=== PATIENT | male | born 1940 | race Caucasian/White ===

== ENCOUNTER 2018-06-19 07:15 | Day surgery (SDC) | payer OTHER, MEDICARE ==
[~2018-06-19] VITALS: Ht 182.9 cm; Wt 86.1 kg
[2018-06-19] VITALS (17 sets, daily range): BP systolic 78–102; BP diastolic 52–67
[2018-06-19] MEDS ORDERED: normal saline 1000ml 1,000 ML IV PRN (07:45)
[2018-06-19] MEDS ORDERED: fentaNYL/PF 50MCG/1 ML 2ML syringe IV ONE (07:45)
[2018-06-19] MEDS ORDERED: MIDAZolam 1mg/ml 10ml vial IV ONE (07:45)
--- NOTE | 2018-06-19 08:05 | NUR ---
informed MD pt arrived with PICC line in place with milrinone running per infusion pump. MD aware verbal order given to use PICC line per MD
--- NOTE | 2018-06-19 08:08 | NUR ---
CALLED PHARMACY, SPOKE WITH ESTIVEN TO CONFIRM MEDICATION COMPATIBILITY OF MEDICATIONS ORDERED AND MEDICATION INFUSION RUNNING IN PT PICC LINE. PHARMACY CONFIRMED COMPATIBILITY IS GOOD.
[2018-06-19 08:36] LABS: EOSINOPHILS # (AUTO) 0.1 X10'3 (0-0.9); EOSINOPHILS % (AUTO) 2.4 % (0-6); HEMATOCRIT 28.9 % (42.0-52.0); HEMOGLOBIN 9.5 g/dl (14.0-17.9); LYMPHOCYTES # (AUTO) 0.5 X10'3 (1.1-4.8); LYMPHOCYTES % (AUTO) 14.5 % (21-51); MEAN CORPUSCULAR HEMOGLOBIN 29.4 PG (27.0-31.0); MEAN CORPUSCULAR HGB CONC 32.7 g/dL (33.0-36.5); MEAN CORPUSCULAR VOLUME 89.8 FL (78-98); MEAN PLATELET VOLUME 8.1 FL (7.4-10.4); MONOCYTES # (AUTO) 0.4 X10'3 (0-0.9); MONOCYTES % (AUTO) 10.9 % (2-12); NEUTROPHILS # (AUTO) 2.6 X10'3 (1.8-7.7); NEUTROPHILS % (AUTO) 71.2 % (42-75); PLATELET COUNT 119 X10'3 (140-440); RED BLOOD COUNT 3.22 X10'6 (4.70-6.10); RED CELL DISTRIBUTION WIDTH 15.5 % (11.5-14.5); WHITE BLOOD COUNT 3.7 X10'3 (4.5-11.0)
[2018-06-19 08:43] LABS: ALBUMIN 2.6 G/DL (3.4-5.0); ANION GAP 6 (8-16); BLOOD UREA NITROGEN 94 MG/DL (7-18); BUN/CREATININE RATIO 36.7 (5.4-32.0); CALCIUM 8.9 MG/DL (8.5-10.1); CHLORIDE 94 MMOL/L (99-107); CREATININE 2.56 MG/DL (0.60-1.10); GLUCOSE 113 MG/DL (70-104); MAGNESIUM 2.1 MG/DL (1.5-2.4); SODIUM 137 MMOL/L (135-145); TOTAL CARBON DIOXIDE 37.3 MMOL/L (24-32); eGFR 24 ML/MIN
[2018-06-19 08:47] LABS: POTASSIUM 2.7 MMOL/L (3.5-5.1)
[2018-06-19] MEDS ORDERED: LEVO50TA8 PO (08:47)
[2018-06-19] MEDS ORDERED: ROPI0.252 PO (08:47)
[2018-06-19] MEDS ORDERED: METO-395 PO (08:47)
[2018-06-19] MEDS ORDERED: BUME2TAB3 PO (08:47)
[2018-06-19] MEDS ORDERED: METO5TAB7 PO (08:47)
[2018-06-19] MEDS ORDERED: [UNRECOGNIZED DRUG - CODE] IV (08:47)
[2018-06-19] MEDS ORDERED: AMIO200T54 PO (08:47)
[2018-06-19] MEDS ORDERED: WARF3TAB56 PO (08:47)
[2018-06-19] MEDS ORDERED: WARF-65 PO (08:47)
[2018-06-19] MEDS ORDERED: potassium Cl 20 mEq SR tablet PO ONE (09:00)
[2018-06-19 09:02] LABS: INR 2.6 INR; PROTHROMBIN TIME 24.7 SECONDS (9.0-12.0)
[2018-06-19] MEDS ORDERED: potassium 10mEq/100ml NS w/LIDOcaine (10mg/bag) IV ONE (09:05)
[2018-06-19] MEDS ORDERED: potassium Cl 20 mEq/100mL bag IV ONE (11:30)
--- NOTE | 2018-06-19 11:30 | NUR ---
critical lab reported to MD, new order given, medications being administered as ordered. pt is waiting comfortably in bed with at his bedside.
[2018-06-19] MEDS ORDERED: potassium Cl 10 mEq/100mL bag IV ONE (13:20)
--- NOTE | 2018-06-19 13:29 | NUR ---
pharmacy called, K replacement charged to pt. Medication was administered to pt as ordered.
== END 2018-06-19 16:00 | disposition home or self-care (01) ==
LOC: SSTAY O 07:15
PROVIDERS: ATTEND Internal Medicine Cardiovascular Disease
DX: I48.0 Paroxysmal atrial fibrillation (principal); I48.3 Typical atrial flutter; I42.0 Dilated cardiomyopathy; I08.0 Rheumatic disorders of both mitral and aortic valves; I47.2 Ventricular tachycardia; E03.9 Hypothyroidism, unspecified; Z95.2 Presence of prosthetic heart valve; Z88.6 Allergy status to analgesic agent; I10 Essential (primary) hypertension; Z82.49 Family history of ischemic heart disease and other diseases of the circulatory system; Z79.899 Other long term (current) drug therapy
CPT/HCPCS: 36415; 80048; 83735; 84132; 85025; 85610; 92960; 93005; J2250; J3010; J3480; J7030